=== PATIENT | female | born 1975 | race Caucasian/White ===

== ENCOUNTER 2017-04-21 15:13 | Emergency (ER) | payer BC ==
--- NOTE | 2017-04-21 17:48 | UC ---
Cecil Atkins Rebecca, scribed for Jovanny Saba MD on 04/21/17 at 1621 . Abdominal Pain Female HPI - HPI Summary HPI Summary: Pt is a 41 y/o F who presents to [facility] c/o abdominal pain. Sx began suddenly at 1416 while on the treadmill. Pain is discrete to the RLQ and is currently severe, ranked 8/10 and characterized as sharp. Sx aggravated by movement and sitting up, alleviated by rest. Additionally c/o nausea secondary to pain. Denies fever, chills, vaginal discharge, dysuria, V/D, constipation. LNMP started on 04/06. PSHx cholecystectomy and PMHx ovarian cyst with current pain ebing slightly similar to prior instances of cyst. - History of Current Complaint Chief Complaint: [facility] [place] Stated Complaint: ABDOMINAL PAIN Time Seen by Provider: 04/21/17 16:13 Hx Obtained From: Patient Hx Last Menstrual Period: 04/06/17 Onset/Duration: Sudden Onset, Still Present Severity Currently: Severe Pain Intensity: 8 Pain Scale Used: 0-10 Numeric Location: Discrete At: RLQ Radiates: No Character: Sharp Aggravating Factor(s): Movement, Other: - Sitting up Alleviating Factor(s): Other: - Rest Associated Signs and Symptoms: Positive: Nausea. Negative: Constipation, Vaginal Discharge, Vomiting, Diarrhea Allergies/Adverse Reactions: Allergies Allergy/AdvReac Type Severity Reaction Status Date / Time No Known Allergies Allergy Verified 04/21/17 16:02 Home Medications: Home Medications Omeprazole CAP* [Prilosec CAP* 20 MG] 1 tab PO DAILY 04/21/17 [History Confirmed 04/21/17] PMH/Surg Hx/FS Hx/Imm Hx - Additional Past Medical History Additional PMH: PMHx ovarian cyst and GERD - Surgical History Surgical History: None - Family History Known Family History: Positive: Hypertension, Diabetes - Social History Alcohol Use: None Substance Use Type: None Smoking Status (MU): Never Smoked Tobacco Review of Systems Constitutional: Negative Skin: Negative Eyes: Negative ENT: Negative Respiratory: Negative Cardiovascular: Negative Gastrointestinal: Abdominal Pain, Nausea Genitourinary: Negative Motor: Negative Neurovascular: Negative Musculoskeletal: Negative Neurological: Negative Psychological: Negative All Other Systems Reviewed And Are Negative: Yes - Comments Additional Review of Systems Comments: NEGATIVE: Fever, chills, vaginal discharge, dysuria, V/D, constipation Physical Exam Triage Information Reviewed: Yes Vital Signs: Initial Vital Signs Temp 98.2 F 04/21/17 15:56 Pulse 79 04/21/17 15:56 Resp 16 04/21/17 15:56 Pulse Ox 100 04/21/17 15:56 Vital Signs Reviewed: Yes - Additional Comments General: well-appearing, mild to moderate pain distress Skin: warm, color reflects adequate perfusion, dry Head: normal Eyes: EOMI, SUDHIR ENT: oral mucosa moist Neck: supple, nontender Respiratory: CTA, breath sounds present Cardiovascular: RRR Abdomen: soft, tender in the RLQ, positive rebound, positive obturator sign, negative heel strike Bowel: hypoactive bowel sounds Musculoskeletal: normal, strength/ROM intact Neurological: normal, sensory/motor intact, A&O x3 Psychological: affect/mood appropriate Abd Pain Female Course/Dx - Course Course Of Treatment: Medications reviewed. DDX INCLUDED APPENDICITIS/OVARIAN CYST/OVARIAN TORSION WHICH, WITHOUT QUICK RETURN ON LABS, CT WITH IV CONTRAST AND/OR US, I AM UNABLE TO ADEQUATELY EVALUATE HERE IN THE CLINIC. THIS WAS DISCUSSED WITH THE PATIENT. I RECOMMENDED SHE GO DIRECTLY TO THE ED FOR FURTHER EVALUATION. SHE AGREED. - Differential Dx/Diagnosis Provider Diagnoses: RLQ ABD PAIN Discharge - Discharge Plan Condition: Stable Disposition: HOME Patient Education Materials: Acute Abdominal Pain (ED) Referrals: No Primary Care Phys,NOPCP [Primary Care Provider] - Additional Instructions: GO DIRECTLY TO THE EMERGENCY DEPARTMENT FOR FURTHER EVALUATION OF YOUR RIGHT LOWER ABDOMINAL PAIN. The documentation as recorded by the Cecil chavarria Rebecca accurately reflects the service I personally performed and the decisions made by me, Jovanny Saba MD.
== END 2017-04-21 16:32 | disposition home or self-care (01) ==
LOC: UCEAST 15:13
DX: R10.31 Right lower quadrant pain (principal); R11.0 Nausea
CPT/HCPCS: 99202; G0463

== ENCOUNTER 2017-04-21 16:52 | Emergency (ER) | payer BC ==
[2017-04-21] MEDS ORDERED: Ondansetron INJ* 2 MG/ML VIAL IV ONE (17:07)
[2017-04-21] MEDS ORDERED: NS 0.9% 1000 ML* 2,000 ML IV ONE (17:07)
[2017-04-21 17:45] LABS: Urine Bacteria 3+ (Absent); Urine Bilirubin Negative (Negative); Urine Glucose Negative (Negative); Urine Nitrite Negative (Negative)
--- NOTE | 2017-04-21 17:57 | RAD ---
HISTORY: Right lower quadrant pain COMPARISONS: None TECHNIQUE: Multiple transverse and longitudinal ultrasound images were obtained of the pelvis using grayscale, color Doppler, and spectral Doppler imaging using the endovaginal transducer. FINDINGS: UTERUS: The uterus measures 7.4 x 3.9 x 5.3 cm. The uterus is normal in shape, size, contour, and echotexture. ENDOMETRIUM: There is a polypoid lesion of the endometrial cavity measuring 1.1 x 0.6 x 1.1 cm in size.. The endometrium measures 1.4 cm in thickness. CUL-DE-SAC: There is no free fluid within the cul-de-sac. RIGHT OVARY: The right ovary measures 3. 2 x 2 by 1 x 2.5 cm. Multiple follicles are noted. ] Boutte flow LEFT OVARY: The left ovary measures 4.4 x 2.6 x 3.8 cm. Normal arterial and venous waveforms are identifiable within the ovary on spectral Doppler imaging. Multiple follicles are noted within an involuting cyst of the left ovary measuring 2.1 cm in size BLADDER: The bladder is not well visualized. OTHER: None IMPRESSION: 1. 1.1 CM POLYPOID LESION OF THE ENDOMETRIAL CAVITY. RECOMMEND CONSIDERATION OF FURTHER EVALUATION WITH DIRECT VISUALIZATION. 2. BILATERAL OVARIAN FOLLICLES. 3. NO SONOGRAPHIC FEATURES OF TORSION. PLEASE NOTE THAT PARTIAL OR INTERMITTENT TORSION MAY BE SONOGRAPHICALLY NORMAL.
[2017-04-21 18:28] LABS: Hematocrit 33 % (35-47); Mean Corpuscular HGB Conc 31 g/dl (31-36); Mean Corpuscular Hemoglobin 22 pg (27-31); Mean Corpuscular Volume 73 fL (80-97); Mean Platelet Volume 7 um3 (7.4-10.4); Red Blood Count 4.47 10^6/ul (4.0-5.4); Red Cell Distribution Width 18 % (10.5-15); White Blood Count 9.8 10^3/ul (3.5-10.8)
[2017-04-21 18:33] LABS: Add Diff/Slide Review? Slide Review Added; Comments Flag Yes
[2017-04-21 18:42] LABS: ALT 15 U/L (7-52); AST 18 U/L (13-39); Albumin 3.8 g/dL (3.2-5.2); Alkaline Phosphatase 47 U/L (34-104); Anion Gap 7 mmol/L (2-11); BUN/Creatinine Ratio 11.5 (8-20); Blood Urea Nitrogen 9 mg/dL (6-24); C Reactive Protein 6.42 mg/L (< 5.00); CO2 Carbon Dioxide 27 mmol/L (22-32); Calcium 9.4 mg/dL (8.6-10.3); Chloride 102 mmol/L (101-111); EGFR African American 105.7 (>60); EGFR Non-African American 82.2 (>60); Globulin 3.7 g/dL (2-4); Glucose 88 mg/dL (70-100); Lipase 19 U/L (11.0-82.0); Potassium 3.2 mmol/L (3.5-5.0); Sodium 136 mmol/L (133-145); Total Protein 7.5 g/dL (6.4-8.9)
--- NOTE | 2017-04-21 18:52 | ED ---
Abdominal Pain/Female - HPI Summary HPI Summary: Pt is a 41 y/o F who presents to ED with c/o abdominal pain. Sx began suddenly around 1400 while on the treadmill. Pain was diffuse lower abdomen and right sided however became discrete to the RLQ and was severe, ranked 8/10 and characterized as sharp. currently pain has subsided and is a 6/10. Sx aggravated by movement and sitting up, alleviated by rest. Additionally c/o nausea secondary to pain. Denies fever, chills, vaginal discharge, dysuria, urinary symptoms, V/D, constipation. LNMP started on 04/06. PSHx cholecystectomy and PMHx ovarian cyst with current pain being slightly similar to prior instances of cyst. States she had it rupture and feel very similar. Also history of kidney stones. LBM was today and normal. - History of Current Complaint Chief Complaint: EDAbdPain Stated Complaint: ABD PAIN Time Seen by Provider: 04/21/17 17:06 Hx Obtained From: Patient Hx Last Menstrual Period: 04/06/17 ?: No Onset/Duration: Sudden Onset, Lasting Hours, Still Present, Resolved - some Severity Initially: Mild Severity Currently: Mild Pain Intensity: 6 Pain Scale Used: 0-10 Numeric Location: Discrete At: RLQ Radiates: Yes Radiates to: Flank - however, resolved Character: Sharp, Dull Aggravating Factor(s): Movement - sitting up Alleviating Factor(s): Position - rest Associated Signs and Symptoms: Positive: Decreased Appetite, Nausea. Negative: Fever, Back Pain, Constipation, Blood in Stool, Urinary Symptoms, Vaginal Bleeding, Vaginal Discharge, Vomiting, Diarrhea Allergies/Adverse Reactions: Allergies Allergy/AdvReac Type Severity Reaction Status Date / Time No Known Allergies Allergy Verified 04/21/17 16:02 Home Medications: Home Medications Omeprazole CAP* [Prilosec CAP* 20 MG] 20 mg PO DAILY 04/21/17 [History Confirmed 04/21/17] PMH/Surg Hx/FS Hx/Imm Hx Endocrine/Hematology History: Denies: Hx Diabetes Cardiovascular History: Denies: Hx Hypertension Respiratory History: Denies: Hx Asthma - Surgical History Surgery Procedure, Year, and Place: n/a - Immunization History Immunizations Up to Date: Yes Infectious Disease History: No Infectious Disease History: Denies: History Other Infectious Disease, Traveled Outside the [place] in Last 30 Days - Family History Known Family History: Positive: Other - colon cancer- mother - Social History Alcohol Use: Occasionally Substance Use Type: Reports: None Smoking Status (MU): Never Smoked Tobacco Review of Systems Constitutional: Negative Cardiovascular: Negative Respiratory: Negative Positive: Abdominal Pain, Nausea Genitourinary: Negative Musculoskeletal: Negative All Other Systems Reviewed And Are Negative: Yes Physical Exam Triage Information Reviewed: Yes Vital Signs On Initial Exam: Initial Vitals Temp Pulse Resp BP Pulse Ox 98.3 F 72 16 157/74 100 04/21/17 16:55 04/21/17 16:55 04/21/17 16:55 04/21/17 16:55 04/21/17 16:55 Vital Signs Reviewed: Yes Appearance: Positive: Well-Appearing, No Pain Distress, Well-Nourished Skin: Positive: Warm, Skin Color Reflects Adequate Perfusion, Dry. Negative: Cold, Numb, Cyanosis @, Jaundiced, Pale, Erythema @ Head/Face: Positive: Normal Head/Face Inspection Eyes: Positive: Conjunctiva Clear ENT: Positive: Hearing grossly normal, Pharynx normal Neck: Positive: Supple, Nontender, No Lymphadenopathy Respiratory/Lung Sounds: Positive: Clear to Auscultation, Breath Sounds Present. Negative: Decreased Breath Sounds, Rales, Rhonchi, Wheezes Cardiovascular: Positive: Normal, RRR, Pulses are Symmetrical in both Upper and Lower Extremities. Negative: Murmur, Rub Abdomen Description: Positive: No Organomegaly, Soft, McBurney's Point Tenderness, Other: - tender on palpation of RLQ, positve psoas and obturator sign, negative rebound and rovsings.. Negative: Bruit, CVA Tenderness (R), CVA Tenderness (L), Distended, Guarding, Peritoneal Signs, Pulsatile Mass Bowel Sounds: Positive: Present, Hypoactive Musculoskeletal: Positive: Normal, Strength/ROM Intact Neurological: Positive: Normal, Sensory/Motor Intact, Alert, Oriented to Person Place, Time, Normal Gait Diagnostics - Vital Signs Vital Signs Temp Pulse Resp BP Pulse Ox 04/21/17 18:16 73 96 04/21/17 16:55 98.3 F 72 16 157/74 100 - Laboratory Lab Results: Lab Results 04/21/17 04/21/17 04/21/17 Range/Units 17:10 17:52 17:52 WBC 9.8 (3.5-10.8) 10^3/ul RBC 4.47 (4.0-5.4) 10^6/ul Hgb 10.0 L (12.0-16.0) g/dl Hct 33 L (35-47) % MCV 73 L (80-97) fL MCH 22 L (27-31) pg MCHC 31 (31-36) g/dl RDW 18 H (10.5-15) % Plt Count 352 (150-450) 10^3/ul MPV 7 L (7.4-10.4) um3 Neut % (Auto) 58.8 (38-83) % Lymph % (Auto) 32.9 (25-47) % [place] % (Auto) 5.6 (1-9) % Eos % (Auto) 2.1 (0-6) % Baso % (Auto) 0.6 (0-2) % Absolute Neuts (auto) 5.8 (1.5-7.7) 10^3/ul Absolute Lymphs (auto) 3.2 (1.0-4.8) 10^3/ul Absolute Monos (auto) 0.5 (0-0.8) 10^3/ul Absolute Eos (auto) 0.2 (0-0.6) 10^3/ul Absolute Basos (auto) 0.1 (0-0.2) 10^3/ul Absolute Nucleated RBC 0.01 10^3/ul Nucleated RBC % 0.1 Sodium 136 (133-145) mmol/L Potassium 3.2 L (3.5-5.0) mmol/L Chloride 102 (101-111) mmol/L Carbon Dioxide 27 (22-32) mmol/L Anion Gap 7 (2-11) mmol/L BUN 9 (6-24) mg/dL Creatinine 0.78 (0.51-0.95) mg/dL Est GFR ( Amer) 105.7 (>60) Est GFR (Non-Af Amer) 82.2 (>60) BUN/Creatinine Ratio 11.5 (8-20) Glucose 88 (70-100) mg/dL Lactic Acid (0.5-2.0) mmol/L Calcium 9.4 (8.6-10.3) mg/dL Total Bilirubin 0.30 (0.2-1.0) mg/dL AST 18 (13-39) U/L ALT 15 (7-52) U/L Alkaline Phosphatase 47 (34-104) U/L C-Reactive Protein 6.42 H (< 5.00) mg/L Total Protein 7.5 (6.4-8.9) g/dL Albumin 3.8 (3.2-5.2) g/dL Globulin 3.7 (2-4) g/dL Albumin/Globulin Ratio 1.0 (1-3) Lipase 19 (11.0-82.0) U/L Beta HCG, Quant < 0.60 mIU/mL Urine Color Straw Urine Appearance Cloudy Urine pH 5.0 (5-9) Ur Specific [place] 1.004 L (1.010-1.030) Urine Protein Negative (Negative) Urine Ketones Negative (Negative) Urine Blood 1+ H (Negative) Urine Nitrate Negative (Negative) Urine Bilirubin Negative (Negative) Urine Urobilinogen Negative (Negative) Ur Leukocyte Esterase 1+ H (Negative) Urine WBC (Auto) 1+(6-10/hpf) H (Absent) Urine RBC (Auto) Absent (Absent) Ur Squamous Epith Cells Present H (Absent) Urine Bacteria 3+ H (Absent) Urine Glucose Negative (Negative) 04/21/17 Range/Units 17:52 WBC (3.5-10.8) 10^3/ul RBC (4.0-5.4) 10^6/ul Hgb (12.0-16.0) g/dl Hct (35-47) % MCV (80-97) fL MCH (27-31) pg MCHC (31-36) g/dl RDW (10.5-15) % Plt Count (150-450) 10^3/ul MPV (7.4-10.4) um3 Neut % (Auto) (38-83) % Lymph % (Auto) (25-47) % [place] % (Auto) (1-9) % Eos % (Auto) (0-6) % Baso % (Auto) (0-2) % Absolute Neuts (auto) (1.5-7.7) 10^3/ul Absolute Lymphs (auto) (1.0-4.8) 10^3/ul Absolute Monos (auto) (0-0.8) 10^3/ul Absolute Eos (auto) (0-0.6) 10^3/ul Absolute Basos (auto) (0-0.2) 10^3/ul Absolute Nucleated RBC 10^3/ul Nucleated RBC % Sodium (133-145) mmol/L Potassium (3.5-5.0) mmol/L Chloride (101-111) mmol/L Carbon Dioxide (22-32) mmol/L Anion Gap (2-11) mmol/L BUN (6-24) mg/dL Creatinine (0.51-0.95) mg/dL Est GFR ( Amer) (>60) Est GFR (Non-Af Amer) (>60) BUN/Creatinine Ratio (8-20) Glucose (70-100) mg/dL Lactic Acid 0.5 (0.5-2.0) mmol/L Calcium (8.6-10.3) mg/dL Total Bilirubin (0.2-1.0) mg/dL AST (13-39) U/L ALT (7-52) U/L Alkaline Phosphatase (34-104) U/L C-Reactive Protein (< 5.00) mg/L Total Protein (6.4-8.9) g/dL Albumin (3.2-5.2) g/dL Globulin (2-4) g/dL Albumin/Globulin Ratio (1-3) Lipase (11.0-82.0) U/L Beta HCG, Quant mIU/mL Urine Color Urine Appearance Urine pH (5-9) Ur Specific [place] (1.010-1.030) Urine Protein (Negative) Urine Ketones (Negative) Urine Blood (Negative) Urine Nitrate (Negative) Urine Bilirubin (Negative) Urine Urobilinogen (Negative) Ur Leukocyte Esterase (Negative) Urine WBC (Auto) (Absent) Urine RBC (Auto) (Absent) Ur Squamous Epith Cells (Absent) Urine Bacteria (Absent) Urine Glucose (Negative) Result Diagrams: 04/21/17 17:52 04/21/17 17:52 Lab Statement: Any lab studies that have been ordered have been reviewed, and results considered in the medical decision making process. - CT abd/pelvis CT Interpretation: No Acute Changes - 1. STATUS POST CHOLECYSTECTOMY. 2. THE APPENDIX IS NOT CLEARLY VISUALIZED. 3. NO ACUTE CT PATHOLOGY OF THE VISUALIZED ABDOMEN OR PELVIS. CT Interpretation Completed By: Radiologist - Ultrasound No standard instances Ultrasound Interpretation: No Acute Changes - 1. 1.1 CM POLYPOID LESION OF THE ENDOMETRIAL CAVITY. RECOMMEND CONSIDERATION OF FURTHER EVALUATION WITH DIRECT VISUALIZATION. 2. BILATERAL OVARIAN FOLLICLES. 3. NO SONOGRAPHIC FEATURES OF TORSION. PLEASE NOTE THAT PARTIAL OR INTERMITTENT TORSION MAY BE SONOGRAPHICALLY NORMAL. Re-Evaluation - Re-Evaluation First Eval Re-Evaluation Time: 19:30 Change: Improved - patient states pain completely subsided, not nausous, is actually hungry. did not have any pain medication. did have zofran with relief. fluids. updated on current lab and imaging results. awaiting CT. Second Eval Re-Evaluation Time: 21:25 Change: Improved - pain completely resolved. updated on imaging. educated. ready to be d/c Abdominal Pain Fem Course/Dx - Course Course Of Treatment: pain completely subsided without medication or intervention while in ED. given zofran for nausea had relief. labs and urinalysis obtained. no urinary symptoms will have cultured to check for UTI and hold off on treatment at this time due to not having symptoms. transvaginal US obtained and showed a polypoid lesion of endometrium however, negative otherwise. Does not appear to be source of pain. Will have followed up with OBGYN. Patient also admits to having polyps in uterus in past. Rest of labs unremarkable other than anemia. Patient was informed to eat high iron diet and recheck with follow up labs with PCP. Educated on symptomatic anemia. No concerning signs otherwise. CT abd/pelvis showed no acute pathlogy. Patient had similar symptoms back with ovarian cyst and kidney stone that was undetectable due to rupture and passing on their own prior to evaluation. Patient states this pain did feel very similar. Appendix was not visualized however on CT, although patient's pain has completely subsided. Spoke with Dr Barrientos about patient who agrees patient to be d/c with close follow up. Patient is aware of worsening signs and symptoms to watch out for and return immediately if occur. - Diagnoses Differential Diagnosis: Positive: Appendicitis, Constipation, Diverticulitis, Ovarian Cyst, Renal Colic, Urinary Tract Infection, Other - ovarian torsion, renal calculi Provider Diagnoses: Abdominal pain, Anemia - Provider Notifications Discussed Care Of Patient With: Dr Barrientos Time Discussed With Above Provider: 21:15 Discharge - Discharge Plan Condition: Stable Disposition: HOME Patient Education Materials: Acute Abdominal Pain (ED), Iron Rich Diet (ED), Anemia (ED) Referrals: No Primary Care Phys,NOPCP [Primary Care Provider] - Andrew Casanova MD [Medical Doctor] - [facility] [place] [facility] [Outside] Additional Instructions: Please call and make an appointment with OBGYN for follow up evaluation. Follow up with PCP. Have blood redrawn to check anemia. Recommend eating iron rich diet. Any new or worsening symptoms as discussed please seek medical attention promptly. Rest and drink plenty of fluids.
[2017-04-21] MEDS ORDERED: Iohexol 300* (CONTRAST) 10 ML SDV IV ONE (19:05)
--- NOTE | 2017-04-21 21:04 | RAD ---
CLINICAL HISTORY: Right lower quadrant pain COMPARISON: None TECHNIQUE: Multiple contiguous axial CT scans were obtained of the abdomen and pelvis after the administration of intravenous contrast. Coronal and sagittal multiplanar reformations are submitted for review. Oral contrast was administered. Delayed images were obtained through the abdomen and pelvis. FINDINGS: LUNG BASES: The lung bases are clear. LIVER: The liver is normal in shape, size, contour, and attenuation. BILE DUCTS: There is no intrahepatic or extrahepatic biliary dilatation. GALLBLADDER: The gallbladder is not visualized. Surgical clips are noted in the gallbladder fossa. PANCREAS: The pancreas is normal, without mass or ductal dilatation. SPLEEN: Normal in size and appearance. UPPER GI TRACT: Evaluation of the gastrointestinal tract is limited by incomplete gastric distention. There is a small sliding hernia. SMALL BOWEL AND MESENTERY: The small bowel is normal in contour, course, and caliber. There is no obstruction or dilatation. COLON: The colon is normal in contour, course, caliber. There is no pericolonic inflammatory change. The appendix is not clearly visualized. There is no inflammatory change within the right lower quadrant. ADRENALS: Normal bilaterally. KIDNEYS: The kidneys are normal in shape, size, contour, and axis. There is no hydronephrosis or nephrolithiasis. BLADDER: The bladder is smooth in contour. PELVIC ORGANS: The uterus and adnexa are grossly normal for technique. AORTA: The aorta is normal. IVC: Unremarkable LYMPH NODES: There is no lymphadenopathy by size criteria. ABDOMINAL WALL: There is a small fat-containing umbilical hernia. BONES AND SOFT TISSUES: The bones and soft tissues are unremarkable. OTHER: None IMPRESSION: 1. STATUS POST CHOLECYSTECTOMY. 2. THE APPENDIX IS NOT CLEARLY VISUALIZED. 3. NO ACUTE CT PATHOLOGY OF THE VISUALIZED ABDOMEN OR PELVIS.
[2017-04-21 21:39] VITALS: BP 144/76
--- NOTE | 2017-04-23 12:31 | PN ---
Progress Note - Progress Note Date of Service: 04/21/17 Note: preliminary culture results show 1-10,000 of staph aureus no symptoms and due to amount of growth no treatment is needed. no further action required at this time.
== END 2017-04-21 21:36 | disposition home or self-care (01) ==
LOC: ED 16:52
DX: R10.9 Unspecified abdominal pain (principal); D64.9 Anemia, unspecified; R11.0 Nausea
CPT/HCPCS: 36415; 74177; 76830; 80053; 81003; 81015; 83605; 83690; 84702; 85025; 86140; 87077; 87086; 87186; 96374; 99284; Q9967

== ENCOUNTER 2017-05-22 08:48 | Emergency (ER) | payer BC ==
[2017-05-22 09:00] VITALS: BP 148/74
--- NOTE | 2017-05-22 09:04 | UC ---
Ear Complaint HPI - HPI Summary HPI Summary: 41 y/o female presents to the urgent care c/o RT ear pain and sinus congestion with cold symptoms since 05/14/2017. Pt states pain is 4/10. Symptoms started with nasal congestion and sore throat. However symptoms worsen on 05/20/2017. She also is has a productive cough on and off with yellowish phlegm Pt denies fever, SOB, chest pain, DANIEL, abdominal pain, N/V/D. She has been taking Tylenol PO to alleviate symptoms. - History of Current Complaint Chief Complaint: UCGeneralIllness Stated Complaint: EAR PAIN Time Seen by Provider: 05/22/17 08:53 Hx Obtained From: Patient Hx Last Menstrual Period: 05/03/17 ?: No Onset/Duration: Gradual Onset Severity Initially: Moderate Severity Currently: Moderate Pain Intensity: 4 Pain Scale Used: 0-10 Numeric Aggravating Factors: Nothing Alleviating Factors: OTC Meds Associated Signs/Symptoms: Positive: URI Symptoms - Allergies/Home Medications Allergies/Adverse Reactions: Allergies Allergy/AdvReac Type Severity Reaction Status Date / Time No Known Allergies Allergy Verified 05/22/17 09:00 PMH/Surg Hx/FS Hx/Imm Hx Previously Healthy: Yes GI/ History: Gastroesophageal Reflux - Surgical History Surgical History: None Surgery Procedure, Year, and Place: [facility]. - Family History Known Family History: Positive: Hypertension, Diabetes Family History: Colon Cancer - Social History Occupation: Employed Full-time Lives: With Family Alcohol Use: Occasionally Substance Use Type: None Smoking Status (MU): Never Smoked Tobacco - Immunization History Most Recent Influenza Vaccination: Not Review of Systems Constitutional: Negative Skin: Negative Eyes: Negative ENT: Sore Throat, Ear Ache - Rt ear pain, Nasal Discharge - at the begining Respiratory: Cough - productive Cardiovascular: Palpitations Gastrointestinal: Negative Genitourinary: Negative Motor: Negative Neurovascular: Negative Musculoskeletal: Negative Neurological: Negative Psychological: Negative Is Patient Immunocompromised?: No All Other Systems Reviewed And Are Negative: Yes Physical Exam Triage Information Reviewed: Yes Vital Signs: Initial Vital Signs Temp 98.0 F 05/22/17 08:55 Pulse 66 05/22/17 08:55 Resp 16 05/22/17 08:55 BP 148/74 05/22/17 08:55 Pulse Ox 100 05/22/17 08:55 - Additional Comments Vital signs: reviewed General: well developed, well nourished female sitting in the examining table w/ o any apparent distress.. Skin: Skene, warm and dry, no evidence of atopic dermatitis, psoriasis, seborrhea. HEENT: -Head: atraumatic, non tender; no scalp dermatitis. -Eyes: sclera and conjunctiva clear, PERRLA, EOMI -Ears: no pre- or postauricular lymphadenopathy or erythema; RT external ear canal with mild cerumen, Rt TM injectid with erythema and purulent discahrge, LF external ear canal clear, and TM WNL, no pinna tenderness on palpation, No perforation -Nose/Face: erythematous and edematous nasal mucosa with clear rhinorrhea, no frontal or maxillary sinus tender to palpation. -Mouth/Throat: Mucous membrane moist, posterior pharynx clear, no erythema or exudates. Neck: supple, FROM, nontender, no lymphadenopathy, no meningismus. Chest: Clear to auscultation, normal breath sounds Abd: soft, Bowel sounds active, Nontender. Back: no spinal or CVAT Neuro: A&O x4, GCS 15, no focal neuro deficits, normal behavior for age. Ear Complaint Course/Dx - Course Course Of Treatment: 41 y/o female presents to the urgent care c/o RT ear pain and sinus congestion with cold symptoms since 05/14/2017. Pt states pain is 4/ 10. Symptoms started with nasal congestion and sore throat. However symptoms worsen on 05/20/2017. She also is has a productive cough on and off with yellowish phlegm. Pt denies fever, SOB, chest pain, DANIEL, abdominal pain, N/V/D. She has been taking Tylenol PO to alleviate symptoms.Hx obtained. Pt with RT otitic media and URI on examination. Pt Rx Amoxicillin PO and Ibuprofen PO for pain. Advised if symptoms do not improve or worsen to start the antibiotic in 2 days. Also advised to return to the urgent care or f/u with PCP if not improvement for further management. Pt understood and agreed with D/C instructions. - Differential Dx/Diagnosis Differential Diagnosis/HQI/PQRI: Cerumen Impaction, Otitis Externa, Otitis Media , Perforated TM, URI Provider Diagnoses: 1- Right acute [place] Media. 2- Elevated BP W/o Hx of HTN Discharge - Discharge Plan Condition: Stable Disposition: HOME Prescriptions: Amoxicillin PO (*) [Amoxicillin 875 MG (*)] 875 mg PO BID #20 tab Ibuprofen TAB* [Motrin TAB* 800 MG] 800 mg PO Q6H #20 tab Patient Education Materials: Otitis Media (ED), Low Sodium Diet (ED) Referrals: No Primary Care Phys,NOPCP [Primary Care Provider] - [facility] [Outside] - If Needed Additional Instructions: 1- If symptoms worsen start taking the antibiotic. Take full course to avoid resistance. 2-Please take ibuprofen PO q6-8hrs prn as instructed after meals to alleviate pain and swelling. Increase fluid intake, eat well, rest and avoid strenuous exercise 3-If symptoms do not improve or worsen please return to the urgent care or f/u with your PCP for further evaluation and treatment 4-. Your BP is elevated today please decrease salt in diet, monitor BP and f/u with PCP for further management
== END 2017-05-22 09:27 | disposition home or self-care (01) ==
LOC: UCEAST 08:48
DX: H66.91 Otitis media, unspecified, right ear (principal); R03.0 Elevated blood-pressure reading, without diagnosis of hypertension
CPT/HCPCS: 99212; G0463

== ENCOUNTER 2018-11-25 07:26 | Emergency (ER) | payer BC ==
[2018-11-25 07:36] VITALS: BP 122/58
--- NOTE | 2018-11-25 08:11 | UC ---
Abdominal Pain Female HPI - HPI Summary HPI Summary: 2 DAYS OF DIFFUSE ABDOMINAL PAIN RADIATING THROUGH TO HER BACK. STATES THE SYMPTOMS STARTED IN HER UPPER ABDOMEN BUT TODAY ARE MORE SUPRAPUBIC. HAS HAD SOME ASSOCIATED NAUSEA AND YESTERDAY FELT SOMEWHAT DIZZY. HAD SOME LOOSE STOOLS INITIALLY BUT NONE IN THE PAST COUPLE OF DAYS. NO FEVER. IS COMPLAINING OF SOME URINARY FREQUENCY AND URGENCY. NO FEVER. LMP 11/16/18. - History of Current Complaint Chief Complaint: UCAbdominalPain Stated Complaint: ABD PAIN Time Seen by Provider: 11/25/18 07:31 Hx Obtained From: Patient Hx Last Menstrual Period: 11/16/18 Onset/Duration: Gradual Onset, Lasting Days, Still Present Timing: Constant Severity Initially: Moderate Severity Currently: Moderate Pain Intensity: 3 Pain Scale Used: 0-10 Numeric Location: Suprapubic Radiates: Yes Radiates to: Back Character: Sharp Aggravating Factor(s): Nothing Alleviating Factor(s): Nothing Associated Signs and Symptoms: Positive: Back Pain, Urinary Symptoms, Nausea. Negative: Fever Allergies/Adverse Reactions: Allergies Allergy/AdvReac Type Severity Reaction Status Date / Time latex Allergy Rash Verified 11/25/18 07:36 Home Medications: Home Medications Loperamide CAP* [Imodium CAP*] 2 tab PO ONCE 11/25/18 [History Confirmed ] PMH/Surg Hx/FS Hx/Imm Hx GI/ History: Gastroesophageal Reflux - Surgical History Surgical History: Yes Surgery Procedure, Year, and Place: [facility]. - Family History Known Family History: Positive: Hypertension, Diabetes, Other - colon cancer- mother Family History: Colon Cancer - Social History Alcohol Use: Occasionally Substance Use Type: Marijuana Smoking Status (MU): Never Smoked Tobacco - Immunization History Most Recent Influenza Vaccination: Not Review of Systems All Other Systems Reviewed And Are Negative: Yes Constitutional: Positive: Negative Respiratory: Positive: Negative Cardiovascular: Positive: Negative Gastrointestinal: Positive: Abdominal Pain, Nausea Genitourinary: Positive: Frequency, Urgency. Negative: Dysuria Physical Exam Triage Information Reviewed: Yes Appearance: Well-Appearing, No Pain Distress, Well-Nourished Vital Signs: Initial Vital Signs Temp 97.3 F 11/25/18 07:30 Pulse 87 11/25/18 07:30 Resp 18 11/25/18 07:30 BP 122/58 11/25/18 07:30 Pulse Ox 98 11/25/18 07:30 Laboratory Tests 11/25/18 11/25/18 07:46 07:48 POC Urine Color Yellow POC Urine Clarity Clear POC Urine pH 5.5 POC Ur Specif [place] 1.015 POC Urine Protein Trace A POC Ur Glucose (UA) Negative POC Urine Ketones Negative POC Urine Blood 1+ A POC Urine Nitrite Negative POC Urine Bilirubin Negative POC Urine Urobilinogen 0.2 POC U Leukocyte Esteras 1+ A POC Ur Test Negative Eyes: Positive: Conjunctiva Clear ENT: Positive: Hearing grossly normal Neck: Positive: Supple, Nontender, No Lymphadenopathy Respiratory Exam: Normal Cardiovascular Exam: Normal Abdomen Description: Positive: Soft, Other: - MILDLY TENDER DIFFUSELY BUT WORSE SUPRAPUBIC AND RLQ. NO RIGIDITY OR REBOUND. Negative: CVA Tenderness (R), CVA Tenderness (L), Distended, Guarding Musculoskeletal: Positive: No Edema Neurological: Positive: Alert Psychological: Positive: Age Appropriate Behavior Skin: Negative: Rashes Diagnostics - Radiology CT ABD/PELVIS W/O CONTRAST Radiology Interpretation Completed By: Radiologist Summary of Radiographic Findings: 1. 5.8 CM CYSTIC MASS PRESENT WITHIN THE PELVIS ON THE RIGHT SIDE. RECOMMEND A PELVIC ULTRASOUND FOR FURTHER EVALUATION. 2. STATUS POST CHOLECYSTECTOMY. 3. THE APPENDIX IS NOT VISUALIZED. 4. NO EVIDENCE FOR RENAL CALCULI OR HYDRONEPHROSIS. PELVIC US Radiology Interpretation Completed By: Radiologist Summary of Radiographic Findings: 1. MINIMALLY COMPLICATED FLUID WITH DEBRIS NOTED IN THE PELVIS THAT APPEARS TO CORRESPOND TO THE CT FINDING WITHOUT LOCULATED FLUID COLLECTION. 2. 1.1 CM POLYP OF THE ENDOMETRIUM. Abd Pain Female Course/Dx - Course Course Of Treatment: CYSTIC LESION IN THE RIGHT PELVIC REGION SEEN ON IMAGING TODAY. APPEARANCE IS NOT CONSISTENT WITH AN ABSCESS. PATIENT IS NOT HAVING FEVERS. DOES NOT LOOK TOXIC TODAY. GIVEN A SMALL AMOUNT OF BACTERIA SEEN ON URINE DIP WILL GO AHEAD AND TREAT PRESUMPTIVELY FOR UTI. HAVE ADVISED PATIENT TO CALL DRAPERY CUTTER TODAY TO SCHEDULE A FOLLOW-UP AUDIE FOR FURTHER EVALUATION OF THIS LESION. TO THE ER WITHOUT FAIL IF SYMPTOMS WORSEN. CBC AND CMP DRAWN. - Differential Dx/Diagnosis Provider Diagnosis: Pelvic cyst Discharge - Sign-Out/Discharge Documenting (check all that apply): Patient Departure All imaging exams completed and their final reports reviewed: Yes - Discharge Plan Condition: Stable Disposition: HOME Prescriptions: Sulfamethox/Trimethoprim DS* [Bactrim DS 800/160 TAB*] 1 tab PO BID #10 tab Patient Education Materials: Pelvic Pain in Women (ED), Cyst (ED) Referrals: Andrew Casanova MD [Medical Doctor] - 3 Days Trino Mensah DO [Primary Care Provider] - If Needed Additional Instructions: IMAGING TODAY SHOWED MINIMALLY COMPLICATED FLUID WITH DEBRIS NOTED IN THE PELVIS. YOU DID HAVE SOME BACTERIA ON YOUR URINE DIP TODAY. WE WILL SEND A SPECIMEN FOR CULTURE AND TREAT EMPIRICALLY WITH ANTIBIOTICS. STAY WELL HYDRATED. CALL DRAPERY CUTTER TODAY TO SCHEDULE FOLLOW-UP APPOINTMENT FOR NEXT WEEK. GO TO THE ER WITHOUT FAIL IF YOU DEVELOP WORSENING PAIN, FEVER OR ANY OTHER CONCERNING SYMPTOMS. BLOOD COUNT AND METABOLIC PANEL DRAWN TODAY. - Billing Disposition and Condition Condition: STABLE Disposition: Home
[2018-11-25 16:21] LABS: Hematocrit 32 % (35-47); Hemoglobin 9.9 g/dL (12.0-16.0); Mean Corpuscular HGB Conc 31 g/dL (31-36); Mean Corpuscular Hemoglobin 21 pg (27-31); Mean Corpuscular Volume 69 fL (80-97); Mean Platelet Volume 7.6 fL (7.4-10.4); Platelet Count 427 10^3/uL (150-450); Red Blood Count 4.67 10^6 /uL (3.70-4.87); Red Cell Distribution Width 18 % (10-15); White Blood Count 7.8 10^3/uL (3.5-10.8)
[2018-11-25 16:24] LABS: Albumin/Globulin Ratio 1.3 (1-3); BUN/Creatinine Ratio 12.5 (8-20); Calcium 9.3 mg/dL (8.6-10.3); EGFR African American 123.7 (>60); EGFR Non-African American 102.3 (>60); Potassium 3.8 mmol/L (3.5-5.0); Total Bilirubin 0.4 mg/dL (0.2-1.0)
[2018-11-25 17:34] LABS: ABS Basophils 0.1 10^3/ul (0-0.2); ABS Eosinophils 0.1 10^3/ul (0-0.6); ABS Lymphocytes 2.1 10^3/ul (1.0-4.8); ABS Monocytes 0.6 10^3/ul (0-0.8); ABS Neutrophils 4.9 10^3/ul (1.5-7.7); Eosinophil % 1.6 %; Lymphocyte % 27.5 %
--- NOTE | 2018-11-26 08:45 | UC ---
- Progress Note Progress Note: Reviewed [facility] notes from 11/25/18 Reviewed blood work from 11/25/18 - h/h 9.9 / 32. MCV / MCH also low. Not critical but will need f/u with PCP and / or oven dauber this week. Will need to go to the Emerg Dept if any problems, worse or new symptoms. RN to call pt with the above. Course/Dx - Diagnoses Provider Diagnoses: Pelvic cyst Discharge - Sign-Out/Discharge Documenting (check all that apply): Post-Discharge Follow Up All imaging exams completed and their final reports reviewed: Yes - Discharge Plan Condition: Stable Disposition: HOME Prescriptions: Fluconazole 150 MG (NF) [Diflucan 150 mg (NF)] 150 mg PO ONCE #2 tab Sulfamethox/Trimethoprim DS* [Bactrim DS 800/160 TAB*] 1 tab PO BID #10 tab Patient Education Materials: Pelvic Pain in Women (ED), Cyst (ED) Forms: *Work Release Referrals: Andrew Casanova MD [Medical Doctor] - 3 Days Trino Mensah DO [Primary Care Provider] - If Needed Additional Instructions: IMAGING TODAY SHOWED MINIMALLY COMPLICATED FLUID WITH DEBRIS NOTED IN THE PELVIS. YOU DID HAVE SOME BACTERIA ON YOUR URINE DIP TODAY. WE WILL SEND A SPECIMEN FOR CULTURE AND TREAT EMPIRICALLY WITH ANTIBIOTICS. STAY WELL HYDRATED. CALL OBSTETRICS/GYNECOLOGY NURSE TODAY TO SCHEDULE FOLLOW-UP APPOINTMENT FOR NEXT WEEK. GO TO THE ER WITHOUT FAIL IF YOU DEVELOP WORSENING PAIN, FEVER OR ANY OTHER CONCERNING SYMPTOMS. BLOOD COUNT AND METABOLIC PANEL DRAWN TODAY. - Billing Disposition and Condition Condition: STABLE Disposition: Home
== END 2018-11-25 11:21 | disposition home or self-care (01) ==
LOC: UCEAST 07:26
DX: N94.89 Other specified conditions associated with female genital organs and menstrual cycle (principal); N84.0 Polyp of corpus uteri; Z32.02 Encounter for pregnancy test, result negative; Z90.49 Acquired absence of other specified parts of digestive tract; Z91.040 Latex allergy status
CPT/HCPCS: 36415; 74176; 76830; 76856; 80053; 81003; 84702; 85025; 85060; 87086; 99212; G0463